=== PATIENT | male | born 1990 | race Caucasian/White ===

== ENCOUNTER 2016-12-05 22:13 | Emergency (ER) | payer SELFPAY ==
[2016-12-05 22:38] VITALS: BP 111/60; PULSE 85; TEMP 98.7; BMI 27.4
--- NOTE | 2016-12-05 22:46 | PDOC ---
History of Present Illness - General Chief Complaint: Injury Stated Complaint: INJURY Time Seen by Provider: 12/05/16 22:43 - History of Present Illness Initial Comments: 12/05/16 22:44 Mr. Christiano Muller is a 25 year old male with no significant past medical history who presents to the emergency department after he collided with someone else while playing soccer earlier today. He says that his knee colided with them and that he is currently experiencing severe 10/10 pain. The patient denies chest pain, shortness of breath, headache and dizziness. Denies fever, chills, nausea, vomit, diarrhea and constipation. Denies dysuria, frequency, urgency and hematuria. Allergies: NKDA Past surgical history: None Social history: Social EtOH PMD - None Past History - Past Medical History Allergies/Adverse Reactions: Allergies Allergy/AdvReac Type Severity Reaction Status Date / Time No Known Allergies Allergy Verified 12/05/16 22:37 Home Medications: Ambulatory Orders NK [No Known Home Medication] 12/05/16 Other medical history: denies - Psycho/Social/Smoking Cessation Hx Anxiety: No Suicidal Ideation: No Smoking History: Never smoked Have you smoked in the past 12 months: No Information on smoking cessation initiated: No Hx Alcohol Use: No Drug/Substance Use Hx: No Substance Use Type: Alcohol Review of Systems - Review of Systems Comments:: 12/05/16 22:44 GENERAL/CONSTITUTIONAL: No fever or chills. No weakness. HEAD, EYES, EARS, NOSE AND THROAT: No change in vision. No ear pain or discharge. No sore throat. CARDIOVASCULAR: No chest pain or shortness of breath RESPIRATORY: No cough, wheezing, or hemoptysis. GASTROINTESTINAL: No nausea, vomiting, diarrhea or constipation. GENITOURINARY: No dysuria, frequency, or change in urination. MUSCULOSKELETAL: +severe L knee pain with any movement. No neck or back pain. SKIN: No rash NEUROLOGIC: No headache, vertigo, loss of consciousness, or change in strength/ sensation. ENDOCRINE: No increased thirst. No abnormal weight change HEMATOLOGIC/LYMPHATIC: No anemia, easy bleeding, or history of blood clots. ALLERGIC/IMMUNOLOGIC: No hives or skin allergy. 12/05/16 22:58 *Physical Exam - Vital Signs Last Vital Signs Temp Pulse Resp BP Pulse Ox 98.7 F 85 20 111/60 98 12/05/16 22:30 12/05/16 22:30 12/05/16 22:30 12/05/16 22:30 12/05/16 22:30 - Physical Exam Comments: 12/05/16 22:45 GENERAL: Awake, alert, and fully oriented, in no acute distress HEAD: No signs of trauma, normocephalic, atraumatic EYES: PERRLA, EOMI, sclera anicteric, conjunctiva clear ENT: Auricles normal inspection, hearing grossly normal, nares patent, oropharynx clear without exudates. Moist mucosa NECK: Normal ROM, supple, no lymphadenopathy, JVD, or masses LUNGS: No distress, speaks full sentences, clear to auscultation bilaterally HEART: Regular rate and rhythm, normal S1 and S2, no murmurs, rubs or gallops, peripheral pulses normal and equal bilaterally. ABDOMEN: Soft, nontender, normoactive bowel sounds. No guarding, no rebound. No masses EXTREMITIES: +L knee is tender to palpation and acutely sensitive to movement. NEUROLOGICAL: Cranial nerves II through XII grossly intact. Normal speech, normal gait, no focal sensorimotor deficits SKIN: Warm, Dry, normal turgor, no rashes or lesions noted. Medical Decision Making - Medical Decision Making 12/05/16 23:59 Patient reports colliding with other balling head tender and is in acute pain. 3-view xray ordered for analysis. Patient signed out to Dr. Harding for continued care. *DC/Admit/Observation/Transfer Diagnosis at time of Disposition: Injury of right knee Qualifiers: Encounter type: initial encounter Qualified Code(s): S89.91XA - Unspecified injury of right lower leg, initial encounter - Discharge Dispostion Disposition: HOME Condition at time of disposition: Stable - Referrals Referrals: Matt Whyte MD [Staff Physician] - - Patient Instructions Printed Discharge Instructions: DI for Knee Sprain Additional Instructions: Please keep your knee elevateed tonight on a pillow Apply ice to the right knee Take motrin for pain Follow up with the orthopedist if you rpain per Print Language: GREENLANDIC - Attestations Physician Attestion: 12/06/16 12:18 I, Dr. Lenny Grossman, attest that this document has been prepared under my direction and personally reviewed by me in its entirety. I further attest, that it accurately reflects all work, treatment, procedures and medical decision -making performed by me.
--- NOTE | 2016-12-05 22:47 | PDOC ---
Attending Attestation - Resident Resident Name: Lenny Grossman - ED Attending Attestation I have performed the following: I have examined & evaluated the patient, The case was reviewed & discussed with the resident, I agree w/resident's findings & plan, Exceptions are as noted - HPI HPI: 12/06/16 20:54 playing soccer and sustained knee injury - Physicial Exam PE: 12/06/16 20:55 wnwd 25 yo male rt knee swelling,no neurovascular deficits, no gross deformity - Medical Decision Making 12/06/16 20:53 no fx,knee immobilizer,nsaids,ice,elevation, follow up with ortho
[2016-12-05] MEDS ORDERED: IBUPROFEN 400 MG TABLET (FP) PO ONE ×2 (23:02→23:10)
--- NOTE | 2016-12-06 02:05 | PDOC ---
*Physical Exam - Vital Signs Last Vital Signs Temp Pulse Resp BP Pulse Ox 98.7 F 85 20 111/60 98 12/05/16 22:30 12/05/16 22:30 12/05/16 22:30 12/05/16 22:30 12/05/16 22:30 ED Treatment Course - Medications Given in the ED: ED Medications Discontinued Medications Generic Name Dose Route Start Last Admin Trade Name Mark Anthony PRN Reason Stop Dose Admin Ibuprofen 800 mg 12/05/16 23:02 12/05/16 23:11 Motrin - PO 12/05/16 23:03 800 mg ONCE ONE Administration Progress Note - Progress Note Progress Note: radiograph NEGATIVE for any dislocation or fracture -pain is posterior knee, no quadriceps pain, pt able to bend knee ,no patellar ballottment -good dp and pt pulses,cap refill < 2 seconds *DC/Admit/Observation/Transfer Diagnosis at time of Disposition: Injury of right knee Qualifiers: Encounter type: initial encounter Qualified Code(s): S89.91XA - Unspecified injury of right lower leg, initial encounter - Discharge Dispostion Disposition: HOME Condition at time of disposition: Stable - Referrals Referrals: Matt Whyte MD [Staff Physician] - - Patient Instructions Printed Discharge Instructions: DI for Knee Sprain Additional Instructions: Please keep your knee elevateed tonight on a pillow Apply ice to the right knee Take motrin for pain Follow up with the orthopedist if you rpain per Print Language: LATVIAN
== END 2016-12-06 02:34 | disposition home or self-care (01) ==
LOC: JER 22:13
DX: S83.91XA Sprain of unspecified site of right knee, initial encounter (principal); S89.91XA Unspecified injury of right lower leg, initial encounter; W50.0XXA Accidental hit or strike by another person, initial encounter; Y93.66 Activity, soccer; Y92.322 Soccer field as the place of occurrence of the external cause
CPT/HCPCS: 73562-TC-RT; 99283-25

== ENCOUNTER 2017-01-21 08:41 | Emergency (ER) | payer SELFPAY ==
[2017-01-21 08:53] VITALS: BP 135/79; PULSE 86; TEMP 98.5; BMI 29.0
--- NOTE | 2017-01-21 09:19 | PDOC ---
History of Present Illness - General Chief Complaint: Pain Stated Complaint: FOOT INJURY Time Seen by Provider: 01/21/17 09:11 History Source: Patient Exam Limitations: No Limitations - History of Present Illness Initial Comments: 01/21/17 09:19 Patient was at work this morning when of heavy machine fell striking him in the medial aspect of his right knee. Patient is ambulatory, but has contusion and swelling to the medial knee area. no other injury 01/21/17 09:27 Occurred: reports: just prior to arrival, this morning Severity: reports: mild Pain Location: reports: none, lower extremity (right knee) Method of Injury: Yes: direct blow Modifying Factors: improves with: cold therapy Loss of Consciousness: no loss of consciousness Associated Symptoms (Fall): denies symptoms Past History - Travel Traveled outside of the country in the last 30 days: No Close contact w/someone who was outside of country & ill: No - Past Medical History Allergies/Adverse Reactions: Allergies Allergy/AdvReac Type Severity Reaction Status Date / Time No Known Allergies Allergy Verified 01/21/17 08:48 Home Medications: Ambulatory Orders Naproxen [Naprosyn -] 500 mg PO BID #14 tablet 01/21/17 Other medical history: denies - Suicide/Smoking/Psychosocial Hx Smoking History: Never smoked Have you smoked in the past 12 months: No Information on smoking cessation initiated: No Hx Alcohol Use: No Drug/Substance Use Hx: No Substance Use Type: None Trauma Specific PMHX - Complaint Specific PMHX Back Injury: No Neck Injury: No Review of Systems - Review of Systems Able to Perform ROS?: Yes Is the patient limited Slovak proficient: Yes Constitutional: Yes: Symptoms Reported, See HPI HEENTM: No: Symptoms Reported Respiratory: No: Symptoms reported Musculoskeletal: Yes: Symptoms Reported, See HPI, Joint Pain, Joint Swelling Integumentary: Yes: Symptoms Reported, See HPI, Bruising Neurological: Yes: Symptoms reported All Other Systems: Reviewed and Negative *Physical Exam - Vital Signs Last Vital Signs Temp Pulse Resp BP Pulse Ox 98.5 F 86 20 135/79 100 01/21/17 08:49 01/21/17 08:49 01/21/17 08:49 01/21/17 08:49 01/21/17 08:49 - Physical Exam General Appearance: Yes: Nourished, Appropriately Dressed, Apparent Distress, Mild Distress HEENT: positive: [place], Normal ENT Inspection, TMs Normal, Pharynx Normal Neck: positive: Supple. negative: Tender Respiratory/Chest: positive: Lungs Clear Cardiovascular: positive: Regular Rhythm Gastrointestinal/Abdominal: positive: Normal Bowel Sounds, Soft Musculoskeletal: negative: Normal Inspection, Vertebral Tenderness Extremity: positive: Normal Capillary Refill. negative: Normal Inspection, Normal Range of Motion (limited range of motion secondary to tenderness to the medial aspect of right knee joint. Has mobile patella, without crepitus or step- offs. 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 We'll treat with NSAIDs and rest *DC/Admit/Observation/Transfer Diagnosis at time of Disposition: Contusion Qualifiers: Encounter type: initial encounter Contusion area: knee Laterality: right Qualified Code(s): S80.01XA - Contusion of right knee, initial encounter - Discharge Dispostion Disposition: HOME Condition at time of disposition: Stable Admit: No - Prescriptions Prescriptions: Naproxen [Naprosyn -] 500 mg PO BID #14 tablet - Referrals Referrals: Ariel Alatorre MD [Staff Physician] - - Patient Instructions Printed Discharge Instructions: DI for Contusion Additional Instructions: Rest, ice to area on and off for 15 minutes 4-6 times a day Avoid heavy lifting or exercise until pain and swelling is resolved or until further directed Keep area highly elevated to reduce swelling Use splints/Chi wrap as directed Followup with orthopedist in one to 2 days if not improving, if significantly improved may wait one week for followup with orthopedist May use ibuprofen 2-200 mg tablets every 6 hours as needed for pain [place], hielo a la rick de forma intermitente mj 15 minutos 4-6 veces al da Evitar levantar objetos pesados ??o hacer ejercicio hasta que se resuelva el dolor y la hinchazn o hasta nuevo dirigido Mantenga el estelle altamente elevada para reducir la hinchazn Utilizar frulas / as envolver segn las indicaciones Followup con ortopedista en marguerite o 2 olmedo si no mejora , mejora significativamente si se puede esperar lorenzo semana para el seguimiento con el ortopedista Puede usar ibuprofeno 2-200 mg comprimidos cada 6 horas segn sea necesario para el dolor - Post Discharge Activity Forms/Work/School Notes: Back to Work
== END 2017-01-21 09:59 | disposition home or self-care (01) ==
LOC: JERFT 08:41
PROC: 2W3QX1Z Immobilization of Right Lower Leg using Splint (ICD-10-PCS; principal; 2017-01-21)
DX: S80.01XA Contusion of right knee, initial encounter (principal); W20.8XXA Other cause of strike by thrown, projected or falling object, initial encounter; Y93.89 Activity, other specified; Y92.9 Unspecified place or not applicable; Y99.0 Civilian activity done for income or pay
CPT/HCPCS: 73562-TC-RT; 99281-25

== ENCOUNTER 2021-05-16 14:37 | Emergency (ER) | payer SELFPAY ==
[2021-05-16 14:56] VITALS: BP 135/78; PULSE 79; TEMP 98.6; BMI 23.0
[2021-05-16] MEDS ORDERED: DEXAMETHASONE SOD PHOSPHATE 10 MG/1 ML VIAL IM ONE (15:26)
[2021-05-16] MEDS ORDERED: LORATADINE 10 MG TABLET PO ONE (15:26)
[2021-05-16] MEDS ORDERED: DEXAMETHASONE SOD PHOSPHATE 10 MG/1 ML VIAL ONE (15:43)
[2021-05-16] MEDS ORDERED: LORATADINE 10 MG TABLET ONE (15:43)
== END 2021-05-16 17:57 | disposition home or self-care (01) ==
LOC: JERFT 14:37
PROC: 3E0233Z Introduction of Anti-inflammatory into Muscle, Percutaneous Approach (ICD-10-PCS; principal; 2021-05-16)
DX: H02.843 Edema of right eye, unspecified eyelid (principal); T78.40XA Allergy, unspecified, initial encounter
CPT/HCPCS: 99284-25; J1100